=== PATIENT | female | born 1975 | race Caucasian/White ===

== ENCOUNTER 2017-09-27 13:45 | Emergency (ER) | payer OTHER, SELFPAY ==
[2017-09-27 15:36] LABS: #Basophils 0.1 thou/uL (0.0-0.2); #Monocytes 0.4 thou/uL (0.11-0.59); #Neutrophils 2.8 thou/uL (1.40-6.50); %Basophils 1.1 % (0.0-1.0); %Eosinophils 0.6 % (0.0-10.0); %Lymphocytes 37.4 % (21.0-51.0); %Monocytes 6.7 % (0.0-10.0); Hematocrit 47.2 % (36.0-47.0); Red Blood Cell (RBC) Count 5.11 mill/uL (4.20-5.40); White Blood Cell (WBC) Count 5.2 thou/uL (4.8-10.8)
--- NOTE | 2017-09-27 15:56 | RAD ---
CHEST ONE VIEW: HISTORY: Chest pain. COMPARISON: 07/28/2016. FINDINGS: Cardiac silhouette is magnified by projection. Pulmonary vasculature is unremarkable. Mediastinum is midline. There is no lobar consolidation or evidence of pneumothorax. fire control officer leads ove rlie the chest. IMPRESSION: No active cardiopulmonary abnormalities are demonstrated. POS: [facility]
[2017-09-27 15:59] LABS: ALT (SGPT) 22 U/L (8-55); AST (SGOT) 19 U/L (5-34); Alkaline Phosphatase 62 U/L (40-150); Anion Gap 16 mmol/L (10-20); BUN (Urea Nitrogen) 16 mg/dL (7.0-18.7); Bilirubin, Total 0.4 mg/dL (0.2-1.2); Calc. Creatinine Clearance 0 mL/min (70-130); Calcium 9.5 mg/dL (7.8-10.44); Carbon Dioxide 23 mmol/L (22-29); Chloride 105 mmol/L (98-107); Estimated GFR-MDRD 67; Globulin 3.8 g/dL (2.4-3.5); Protein, Total 7.8 g/dL (6.0-8.3)
[2017-09-27 16:03] LABS: Troponin I Less than 0.010 ng/mL (< 0.028)
[2017-09-27] MEDS ORDERED: hydrALAZINE 20 MG/ML VIAL ONE (16:05)
[2017-09-27] MEDS ORDERED: Metoprolol Tartrate 5 MG/5 ML VIAL ONE (16:48)
[2017-09-27 17:48] LABS: Bilirubin Negative (Negative); Blood, Urine Negative (Negative); Glucose, Urine (Dipstick) Negative (Negative); Ketone, Urine Negative (Negative); Nitrite Negative (Negative); Protein, Urine (Dipstick) Negative (Neg-Trace); Urobilinogen 0.2 mg/dL (0.2-1.0)
[2017-09-27 17:51] LABS: Bacteria/HPF 1+ HPF (None Seen); Hyaline Casts/LPF 0-3 HYALINE CAST LPF (0-3 Hyaline); WBC/HPF 0-3 HPF (0-3)
--- NOTE | 2017-09-29 15:25 | EKG ---
Test Reason : Blood Pressure : / mmHG Vent. Rate : 140 BPM Atrial Rate : 140 BPM P-R Int : 122 ms QRS Dur : 076 ms QT Int : 292 ms P-R-T Axes : 048 -14 040 degrees QTc Int : 445 ms Sinus tachycardia Cannot rule out Inferior infarct , age undetermined Possible Anterior infarct , age undetermined No STEMI Abnormal ECG Confirmed by MARGARITA REYES M.D. ([id number]), newspaper managing editor SEJAL SEBASTIAN ([id number]) on 09/29/2017 3:24:30 PM Referred By: Confirmed By:MARGARITA REYES M.D.
--- NOTE | 2017-10-06 16:43 | EKG ---
Test Reason : Blood Pressure : / mmHG Vent. Rate : 075 BPM Atrial Rate : 075 BPM P-R Int : 118 ms QRS Dur : 078 ms QT Int : 422 ms P-R-T Axes : 000 197 148 degrees QTc Int : 471 ms Normal sinus rhythm Right superior axis deviation No STEMI Abnormal ECG Confirmed by GINA MONTOYA, JOSE ([id number]), editor in chief newspaper SEJAL SEBASTIAN ([id number]) on 10/06/2017 4:42:35 PM Referred By: Confirmed By:JOSE FUENTES MD
== END 2017-09-27 21:38 | disposition home or self-care (01) ==
LOC: ERS 13:45
DX: N39.0 Urinary tract infection, site not specified (principal); K21.0 Gastro-esophageal reflux disease with esophagitis; I10 Essential (primary) hypertension; F41.9 Anxiety disorder, unspecified; Z79.899 Other long term (current) drug therapy
CPT/HCPCS: 71010; 80053; 81003; 81015; 82553; 83880; 84484; 85025; 93005; 96361; 96374; 96375; J0360

== ENCOUNTER 2018-03-26 10:37 | Outpatient (CLI) | payer OTHER | END 2018-03-26 10:38 | disposition home or self-care (01) | LOC: BICMAMMO 10:37 | PROVIDERS: ATTEND Specialist | DX: N60.02 Solitary cyst of left breast (principal) | CPT/HCPCS: 77066; G0279 ==

== ENCOUNTER 2018-04-05 08:02 | Emergency (ER) | payer OTHER ==
[2018-04-05 08:54] LABS: #Lymphocytes 1.1 thou/uL (1.20-3.40); #Monocytes 0.3 thou/uL (0.11-0.59); #Neutrophils 4.7 thou/uL (1.40-6.50); %Basophils 0.5 % (0.0-1.0); %Eosinophils 0.7 % (0.0-10.0); %Lymphocytes 17.7 % (21.0-51.0); %Monocytes 4.4 % (0.0-10.0); %Neutrophils 76.7 % (42.0-75.0); Hemoglobin 15.4 g/dL (12.0-16.0); Mean Corpuscular HGB CONC 33.7 g/dL (32.0-36.0); Mean Corpuscular Hemoglobin 30.4 pg (27.0-31.0); Mean Corpuscular Volume 90.4 fl (81.0-99.0); Mean Platelet Volume 7.8 fL (7.4-10.4); Platelet Count 256 thou/uL (130-400); RBC Distribution Width 12.7 % (11.5-14.5); Red Blood Cell (RBC) Count 5.06 mill/uL (4.20-5.40); White Blood Cell (WBC) Count 6.1 thou/uL (4.8-10.8)
[2018-04-05 09:02] LABS: ALT (SGPT) 18 U/L (8-55); AST (SGOT) 16 U/L (5-34); Albumin 4.3 g/dL (3.5-5.0); Alkaline Phosphatase 58 U/L (40-150); Anion Gap 11 mmol/L (10-20); BUN (Urea Nitrogen) 12 mg/dL (7.0-18.7); Bilirubin, Total 0.9 mg/dL (0.2-1.2); Calc. Creatinine Clearance 0 mL/min (70-130); Calcium 9.6 mg/dL (7.8-10.44); Carbon Dioxide 24 mmol/L (22-29); Chloride 104 mmol/L (98-107); Estimated GFR-MDRD 78; Globulin 3.6 g/dL (2.4-3.5); Glucose 114 mg/dL (70-105); Potassium 3.4 mmol/L (3.5-5.1); Protein, Total 7.9 g/dL (6.0-8.3); Sodium 136 mmol/L (136-145)
[2018-04-05 09:29] LABS: CKMB 0.5 ng/mL (0-6.6); Troponin I Less than 0.010 ng/mL (< 0.028)
[2018-04-05 09:47] LABS: BHCG - Serum Negative (NEGATIVE); Pregs Control Background? CLEAR/WHITE (CLR/WHITE); Pregs Control Bar Appear? YES (CONTROL BAR)
[2018-04-05] MEDS ORDERED: Diazepam 10 MG/2 ML SYRINGE ONE (10:14)
[2018-04-05] MEDS ORDERED: Diazepam 10 MG/2 ML SYRINGE IVP SCH (10:15)
[2018-04-05 11:07] LABS: Pregnancy Test - Urine (BHCG) Negative (Negative); Pregu Control Background? CLEAR/WHITE (CLR/WHITE); Pregu Control Bar Appear? YES (CONTROL BAR); Specific Gravity 1.003 (1.002-1.036)
[2018-04-05] MEDS ORDERED: diphenhydrAMINE 50 MG/ML VIAL ONE (11:09)
[2018-04-05] MEDS ORDERED: Metoclopramide HCl 10 MG/2 ML VIAL ONE (11:17)
--- NOTE | 2018-04-05 11:30 | CT ---
CT ANGIOGRAM CHEST WITH IV CONTRAST AND 3D RECONSTRUCTIONS CT ANGIOGRAM ABDOMEN WITH IV CONTRAST AND 3D RECONSTRUCTIONS: Date: 04-05-18 History: Patient states not feeling well. Patient is having abdominal pain. Known thoracic aortic ane urysm. Comparison: CTA chest 11-29-15. FINDINGS: There is a heterogenous dominant nodule in the left lobe of the thyroid gland, also seen on the prior exam. This nodule measures approximately 3.2 cm in maximal dimensions and is better visualized on th e current exam compared to the prior study. Again noted is ectasia of the ascending thoracic aorta which measures 4.3 cm in diameter and is stabl e in size compared to the prior study. The descending thoracic aorta as well as abdominal aorta are n ormal in caliber and there is no evidence of an aortic dissection. There is normal arrangement of the great vessels at the aortic arch which are patent. The celiac, superior mesenteric, and inferior mesenteric arteries are widely patent. There are single patent bilateral renal arteries. The bilateral common iliac arteries as well as the most proximal internal and external iliac arteries are patent. There are very small bilateral pleural effusions with scattered areas are seen posteriorly as well. N o discrete pulmonary nodule or mass is identified. This exam is obtained in expiratory phase of imagi ng. The heart is mildly enlarged. No filling defects are seen in the pulmonary arteries to suggest a pulm onary embolus. Mediastinal structures otherwise have a normal CT appearance. Bilateral breast prostheses are present. The liver, spleen, pancreas, bilateral adrenal glands and kidneys demonstrate a normal CT appearance. No free fluid, fluid collection, or lymphadenopathy is seen in the abdomen. IMPRESSION: 1. Stable ectasia of the ascending thoracic aorta. The descending thoracic aorta as well as abdominal aorta are normal in caliber, and there is no aortic dissection visualized. 2. Heterogeneous nodule left lobe of the thyroid gland. Nonemergent thyroid ultrasound is recommended . 3. Tiny bilateral pleural effusions. 4. Mild cardiomegaly. POS: [facility]
[2018-04-05] MEDS ORDERED: ISOVUE-370 76%-LOCM 1 ML ONE (13:06)
== END 2018-04-05 12:48 | disposition home or self-care (01) ==
LOC: ERS 08:02
DX: I77.810 Thoracic aortic ectasia (principal); E04.1 Nontoxic single thyroid nodule; R51 Headache; I10 Essential (primary) hypertension; Z79.899 Other long term (current) drug therapy
CPT/HCPCS: 36415; 71275; 80053; 81025; 82553; 84484; 84703; 85025; 86850; 86900; 86901; 93005; 96374; 96375; J1200; J2765; J3360

== ENCOUNTER 2020-12-23 08:08 | Outpatient (CLI) | payer OTHER | END 2020-12-23 08:09 | disposition home or self-care (01) | LOC: BICMAMMO 08:08 | PROVIDERS: ATTEND Specialist | DX: N60.02 Solitary cyst of left breast (principal); E04.1 Nontoxic single thyroid nodule | CPT/HCPCS: 77066; G0279 ==

== ENCOUNTER 2020-12-30 13:15 | Inpatient (IN) | payer OTHER ==
[2021-01-13] MEDS ORDERED: Acetaminophen 500 MG TAB ONE (08:49)
[2021-01-13] MEDS ORDERED: Ketorolac Tromethamine 30 MG/ML VIAL ONE ×2 (08:50→15:48)
[2021-01-13 08:57] LABS: #Lymphocytes 1.6 thou/uL (1.20-3.40); #Monocytes 0.3 thou/uL (0.11-0.59); #Neutrophils 3.2 thou/uL (1.40-6.50); %Basophils 0.7 % (0.0-1.0); %Eosinophils 0.9 % (0.0-10.0); %Lymphocytes 30.9 % (21.0-51.0); %Monocytes 6.3 % (0.0-10.0); %Neutrophils 61.2 % (42.0-75.0); Hemoglobin 14.5 g/dL (12.0-16.0); Mean Corpuscular HGB CONC 34.4 g/dL (32.0-36.0); Mean Corpuscular Hemoglobin 31.9 pg (27.0-31.0); Mean Corpuscular Volume 92.8 fL (78.0-98.0); Mean Platelet Volume 7.9 fL (7.4-10.4); Platelet Count 261 thou/uL (130-400); RBC Distribution Width 12.5 % (11.5-14.5); Red Blood Cell (RBC) Count 4.54 mill/uL (4.20-5.40); White Blood Cell (WBC) Count 5.2 thou/uL (4.8-10.8)
[2021-01-13 09:12] LABS: BHCG - Serum Negative (NEGATIVE); Pregs Control Background? CLEAR/WHITE (CLR/WHITE); Pregs Control Bar Appear? YES (CONTROL BAR)
[2021-01-13 09:18] LABS: Anion Gap 12 mmol/L (10-20); BUN (Urea Nitrogen) 16 mg/dL (7.0-18.7); Calc. Creatinine Clearance 121 mL/min (70-130); Calcium 9.1 mg/dL (7.8-10.44); Carbon Dioxide 25 mmol/L (22-29); Chloride 104 mmol/L (98-107); Glucose 105 mg/dL (70-105); Potassium 3.6 mmol/L (3.5-5.1); Sodium 137 mmol/L (136-145)
[2021-01-13] MEDS ORDERED: XYLOCAINE 2%-EPI 1:100,000 20 ML VIAL ONE (09:47)
[2021-01-13] MEDS ORDERED: Bupivacaine 0.25% HCL 30 ML VIAL ONE (09:47)
[2021-01-13 09:50] LABS: SARS-CoV-2 NAA Rapid Test Not Detected (NotDetected)
[2021-01-13] MEDS ORDERED: Meperidine HCl/PF 25 MG/ML VIAL ONE (09:52)
[2021-01-13] MEDS ORDERED: Fentanyl 100 MCG/2 ML VIAL ONE (09:52)
[2021-01-13] MEDS ORDERED: Midazolam HCl 2 mg/2 ml Vial ONE ×2 (09:52→09:55)
[2021-01-13] MEDS ORDERED: Famotidine/PF 20 mg/2ml Vial ONE (09:52)
[2021-01-13] MEDS ORDERED: PACU-Morphine 4MG/ML VIAL SLOW IVP PRN (11:34)
[2021-01-13] MEDS ORDERED: Promethazine HCl 25 MG/ML VIAL SLOW IVP PRN (11:34)
[2021-01-13] MEDS ORDERED: Ondansetron HCl/PF 4 MG/2 ML Vial IVP PRN (11:34)
[2021-01-13] MEDS ORDERED: Promethazine HCl 25 MG/ML VIAL IM PRN ×2 (11:34→12:54)
[2021-01-13] MEDS ORDERED: SUGAMMADEX SODIUM 200 MG/2 ML VIAL ONE (11:48)
[2021-01-13] MEDS ORDERED: hydrALAZINE 20 MG/ML VIAL SLOW IVP PRN (12:54)
[2021-01-13] MEDS ORDERED: Dextrose 5% in Water 1,000 ML IV PRN (12:54)
[2021-01-13] MEDS ORDERED: Dextrose 50% Abboject 50 ML SYRINGE SLOW IVP PRN (12:54)
[2021-01-13] MEDS ORDERED: Ondansetron PF 4 MG/2 ML Vial IVP PRN (12:54)
[2021-01-13] MEDS ORDERED: Morphine 2 MG/ML VIAL SLOW IVP PRN (12:54)
[2021-01-13] MEDS ORDERED: Morphine 4 MG/ML VIAL SLOW IVP PRN (12:54)
[2021-01-13] MEDS ORDERED: Ketorolac Tromethamine 30 MG/ML VIAL IVP PRN (12:54)
[2021-01-13] MEDS ORDERED: hydrALAZINE 20 MG/ML VIAL ONE (13:08)
[2021-01-13] MEDS ORDERED: Labetalol HCl 100 MG/20 ML VIAL ONE (13:48)
[2021-01-13] MEDS ORDERED: D5 1/2 NS w/20 mEq KCL 1,000 ML ONE (13:53)
[2021-01-13 13:56] VITALS: BMI 33.9
[2021-01-13] MEDS: D5 1/2 NS w/20 mEq KCL 1,000 ML IV SCH (14:10)
[2021-01-13] MEDS ORDERED: ePHEDrine 50 MG/ML VIAL ONE (15:48)
[2021-01-13] MEDS ORDERED: Rocuronium Bromide 10 MG/ML (10ML VIAL) ONE (15:48)
[2021-01-13] MEDS ORDERED: Dexamethasone 20 MG/5 ML VIAL ONE (15:48)
[2021-01-13] MEDS ORDERED: Glycopyrrolate 0.2 MG/ML 5 ML SYRINGE ONE (15:48)
[2021-01-13] MEDS ORDERED: Ondansetron PF 4 MG/2 ML Vial ONE (15:48)
[2021-01-13] MEDS ORDERED: Metoclopramide HCl 10 MG/2 ML VIAL ONE (15:48)
[2021-01-13] MEDS ORDERED: PROPOFOL 200 MG/20 ML VIAL ONE (15:48)
[2021-01-13] MEDS ORDERED: Lidocaine 1% PF 5 ML VIAL ONE (15:48)
[2021-01-13] MEDS ORDERED: PHENYLEPHRINE-NS 100 MCG/ML 10 ML SYRINGE ONE (15:48)
[2021-01-13] MEDS: hydrALAZINE 25 MG TAB PO SCH ×2 (16:38→20:34)
[2021-01-13] MEDS: Lisinopril 20 MG TAB PO SCH (20:34)
[2021-01-13] MEDS: HYDROcodone/Acetaminophen 10/325 mg Tablet PO PRN (20:35)
--- NOTE | 2021-01-13 21:23 | EKG ---
Test Reason : PREOP Blood Pressure : / mmHG Vent. Rate : 076 BPM Atrial Rate : 076 BPM P-R Int : 130 ms QRS Dur : 080 ms QT Int : 410 ms P-R-T Axes : 053 018 035 degrees QTc Int : 461 ms Normal sinus rhythm Normal ECG No previous ECGs available Confirmed by DR. Sharon ULLOA MD ([id number]) on 01/13/2021 9:22:32 PM Referred By: LUCIANO Confirmed By:DR. Sharon ULLOA MD
[2021-01-14] MEDS: HYDROcodone/Acetaminophen 10/325 mg Tablet PO PRN ×2 (04:16→11:25)
[2021-01-14] MEDS: D5 1/2 NS w/20 mEq KCL 1,000 ML IV SCH (04:18)
[2021-01-14 05:52] LABS: #Lymphocytes 1.1 thou/uL (1.20-3.40); #Monocytes 0.5 thou/uL (0.11-0.59); #Neutrophils 10.8 thou/uL (1.40-6.50); %Basophils 0.1 % (0.0-1.0); %Eosinophils 0.2 % (0.0-10.0); %Lymphocytes 8.7 % (21.0-51.0); %Monocytes 4.3 % (0.0-10.0); %Neutrophils 86.6 % (42.0-75.0); Mean Corpuscular Hemoglobin 30.6 pg (27.0-31.0); Mean Corpuscular Volume 92.9 fL (78.0-98.0); Mean Platelet Volume 8.1 fL (7.4-10.4); Platelet Count 265 thou/uL (130-400); Red Blood Cell (RBC) Count 4.25 mill/uL (4.20-5.40); White Blood Cell (WBC) Count 12.4 thou/uL (4.8-10.8)
[2021-01-14 06:12] LABS: Anion Gap 14 mmol/L (10-20); BUN (Urea Nitrogen) 13 mg/dL (7.0-18.7); Calc. Creatinine Clearance 121 mL/min (70-130); Calcium 8.9 mg/dL (7.8-10.44); Carbon Dioxide 21 mmol/L (22-29); Chloride 106 mmol/L (98-107); Glucose 143 mg/dL (70-105); Potassium 3.8 mmol/L (3.5-5.1); Sodium 137 mmol/L (136-145)
[2021-01-14 08:00] VITALS: TEMP 97.6
[2021-01-14] MEDS ORDERED: Hydrochlorothiazide 25 MG TAB PO SCH (09:00)
[2021-01-14] MEDS: hydrALAZINE 25 MG TAB PO SCH (09:22)
[2021-01-14] MEDS: Lisinopril 20 MG TAB PO SCH (09:22)
[2021-01-14 09:23] VITALS: BP 141/95
[2021-01-14] MEDS ORDERED: FLU VACC QS2020-21(6MOS UP)/PF 60 MCG/0.5 ML SYRINGE IM ONE (21:00)
--- NOTE | 2021-01-15 17:47 | OP ---
DATE OF PROCEDURE: 01/13/2021 PREOPERATIVE DIAGNOSIS: Left thyroid mass/tumor. POSTOPERATIVE DIAGNOSIS: Left thyroid mass/tumor. OPERATION PERFORMED: Left thyroid lobectomy. FIBERGLASS PIPE COVERING SUPERVISOR: Dr. Geronimo Alvarez. ANESTHESIA: General endotracheal. INDICATIONS: The patient is a 45-year-old white female. She was found to have a large left thyroid mass. This was biopsied several months ago and found to be benign. Observation was chosen at that time. She has recently returned, however, complaining of symptoms associated with this and therefore presents at this time for resection of the thyroid mass. Her right thyroid appears to be entirely normal by ultrasound. DESCRIPTION OF OPERATION: Informed consent was obtained. The patient was taken to the operating room where general endotracheal anesthesia was obtained with the patient in supine position. Neck was prepped with ChloraPrep and draped in sterile fashion. Local anesthetic was infiltrated using 0.25% Marcaine with epinephrine. A curvilinear low collar incision was created and dissection was carried through skin and subcutaneous tissue. The platysma was incised. Subplatysmal flaps were raised superiorly and inferiorly. The patient had three fairly large anterior jugular veins, each of which were divided between 3-0 silk ties. The strap muscles were in the midline and reflected laterally, primarily on the left side with only minimal dissection on the right. The right thyroid was visualized and palpated and again found to be without abnormality. A combination of sharp and blunt dissection was carried laterally across the surface of the thyroid. Attention was turned first to the superior pole of the thyroid. The investing vessels were carefully dissected as they entered the gland and divided using the LigaSure device with meticulous hemostasis. Care was taken to avoid injury to the superior laryngeal nerves. In a similar fashion, the inferior thyroid was mobilized and investing vessels divided. The thyroid was then mobilized and the middle thyroid vein was divided. The thyroid was rolled toward the midline, taking care to avoid posterior dissection in the area of the recurrent laryngeal nerve. The thyroid was then dissected off its attachments with the trachea, dividing the ligament of Kelsey. The isthmus was then divided with a final firing of the LigaSure. Specimen was tagged for orientation and passed off the field. Examination revealed a nodule that had been present on the superior posterior aspect of the thyroid. This appeared to be separate from the thyroid. There was at least part of the mass appeared to be a thyroid nodule that had been dissected, but the 2nd portion was difficult to discern. It was not felt to be a parathyroid gland nor did it resemble atypical lymph node. I decided to carefully dissect this from surrounding tissue and removed this intact and passed this off as a separate nodule. The wound was then irrigated and all irrigant was aspirated. Meticulous hemostasis was ensured. The strap muscles were reapproximated in the midline with interrupted sutures of 3-0 Monocryl. The platysma was closed with a running suture of 3-0 Monocryl. The skin edges were approximated with 4-0 Monocryl and Dermabond was placed externally. Additional local anesthetic was infiltrated and instilled in the wound during closure. There were no complications. Blood loss was negligible. The patient tolerated the procedure well and was taken to recovery room in stable condition. Job ID: [id number]
== END 2021-01-14 11:55 | disposition home or self-care (01) | DRG 627 ==
LOC: SURG A 01-13 08:02
PROVIDERS: ADMIT Specialist; ATTEND Specialist
PROC: 0GBG0ZZ Excision of Left Thyroid Gland Lobe, Open Approach (ICD-10-PCS; principal; 2021-01-13)
DX: E04.1 Nontoxic single thyroid nodule (principal); Z20.822 Contact with and (suspected) exposure to COVID-19; N60.02 Solitary cyst of left breast; F41.9 Anxiety disorder, unspecified
CPT/HCPCS: 36415; 80048; 84703; 85025; 88307; 93005; 93010; J0360; J0690; J1100; J1885; J2175; J2250; J2270; J2405; J2704; J2765; J3010; J3480; J3490; S0020; S0028; U0002